=== PATIENT | male | born 1970 | race African-American/Black ===

== ENCOUNTER 2017-11-11 22:55 | Inpatient (IN) ==
[2017-11-11] MEDS ORDERED: SODIUM CHLORIDE 0.9% 1,000 ML IV STA (23:47)
[2017-11-11] MEDS ORDERED: ONDANSETRON 4 MG/2 ML VIAL IV STA (23:47)
[2017-11-11] MEDS ORDERED: MECLIZINE 25 MG TABLET PO STA (23:48)
[2017-11-11] MEDS ORDERED: ONDANSETRON 4 MG/2 ML VIAL ONE (23:59)
[2017-11-11] MEDS ORDERED: MECLIZINE 25 MG TABLET ONE (23:59)
[2017-11-12 00:15] LABS: Basophils # 0.1 10*3/uL (0.0-0.2); Basophils % 0.9 % (0.0-0.8); Eosinophils # 0.1 10*3/uL (0.0-0.87); Eosinophils % 0.7 % (0.00-10.9); Hemoglobin 9.7 GM/DL (14.0-18.0); Immature Granulocytes % 0.4 %; Immature Granulocytes Absolute 0.03 #; Lymphocytes # 1.9 10*3/uL (1.4-4.0); Lymphocytes % 27.6 % (21.2-54.2); Mean Corpuscular HGB Conc 32.3 GM/DL (32-36); Mean Corpuscular Hemoglobin 26 PG (27-34); Mean Corpuscular Volume 80.9 FL (87-102); Mean Platelet Volume 10.4 FL (9.6-12.0); Monocytes % 15.1 % (1.7-12.7); Neutrophils # 3.7 10*3/uL (1.4-7.4); Neutrophils % 55.3 % (38.7-73.9); Platelet Count 168 T/CUMM (130-400); Red Blood Count 3.71 MC/CUMM (3.8-5.5); Red Cell Distribution Width 20.4 % (9.3-17.3); White Blood Count 6.7 T/CUMM (4-12)
[2017-11-12 00:39] LABS: Albumin 3.2 G/DL (3.4-5.0); Bilirubin,Total 1.2 MG/DL (0.2-1.0); Calcium 8.8 MG/DL (8.5-10.1); Osmolality,Calculated 277.7 MOS/KG (273-304); Potassium 3.7 MMOL/L (3.5-5.1); Total Protein 9.3 G/DL (6.4-8.3)
[2017-11-12] MEDS ORDERED: ONDANSETRON 4 MG/2 ML VIAL IV PRN ×2 (00:59→06:40)
[2017-11-12] MEDS ORDERED: ACETAMINOPHEN 325 MG TABLET PO PRN ×2 (00:59→06:40)
[2017-11-12] MEDS ORDERED: DEXTROSE 5% NACL 0.9% 1,000 ML IV SCH (01:00)
[2017-11-12] MEDS ORDERED: DEXTROSE 50% 25 GM/50 ML VIAL IV PRN ×2 (01:00→06:31)
[2017-11-12] MEDS ORDERED: GLUCAGON 1 MG VIAL IM PRN ×2 (01:00→06:31)
[2017-11-12] MEDS ORDERED: DOCUSATE SODIUM 100 MG CAPSULE PO PRN (06:40)
[2017-11-12] MEDS: SODIUM CHLORIDE 0.9% 1,000 ML IV SCH ×2 (07:22→16:31)
[2017-11-12 07:42] LABS: Calcium 8.3 MG/DL (8.5-10.1); Magnesium 1.4 MG/DL (1.8-2.4); Osmolality,Calculated 277.7 MOS/KG (273-304); Potassium 3.4 MMOL/L (3.5-5.1)
[2017-11-12 07:45] LABS: Troponin I Only < 0.015 NG/ML (0.00-0.045)
[2017-11-12] MEDS ORDERED: PANTOPRAZOLE 40 MG TABLET PO SCH (09:00)
[2017-11-12] MEDS ORDERED: DOCUSATE SODIUM 100 MG CAPSULE PO SCH (09:00)
[2017-11-12 10:15] LABS: Basophils # 0.1 10*3/uL (0.0-0.2); Basophils % 1.4 % (0.0-0.8); Eosinophils % 0.7 % (0.00-10.9); Hematocrit 30.3 VOL% (42.0-52.0); Hemoglobin 9.3 GM/DL (14.0-18.0); Immature Granulocytes % 0.2 %; Immature Granulocytes Absolute 0.01 #; Lymphocytes # 1.8 10*3/uL (1.4-4.0); Lymphocytes % 31.3 % (21.2-54.2); Mean Corpuscular HGB Conc 30.7 GM/DL (32-36); Mean Corpuscular Hemoglobin 26 PG (27-34); Mean Corpuscular Volume 83.2 FL (87-102); Mean Platelet Volume 10.5 FL (9.6-12.0); Neutrophils # 2.8 10*3/uL (1.4-7.4); Neutrophils % 49.4 % (38.7-73.9); Platelet Count 142 T/CUMM (130-400); Red Blood Count 3.64 MC/CUMM (3.8-5.5); Red Cell Distribution Width 20.2 % (9.3-17.3); White Blood Count 5.7 T/CUMM (4-12)
[2017-11-12 10:39] LABS: Lymphocytes 33 % (20-55); Segmented Neutrophils 59 % (50-85); Total Cells Counted 100
[2017-11-12 10:40] LABS: Anisocytosis 1+; Hypochromasia 1+; Microcytosis 1+; Platelet Estimate Adequate
[2017-11-12 10:51] LABS: Basophils # 0.1 10*3/uL (0.0-0.2); Basophils % 1.2 % (0.0-0.8); Eosinophils # 0.1 10*3/uL (0.0-0.87); Eosinophils % 1.7 % (0.00-10.9); Hematocrit 29.7 VOL% (42.0-52.0); Hemoglobin 9.3 GM/DL (14.0-18.0); Immature Granulocytes % 0.2 %; Immature Granulocytes Absolute 0.01 #; Lymphocytes # 2.2 10*3/uL (1.4-4.0); Lymphocytes % 35.7 % (21.2-54.2); Mean Corpuscular HGB Conc 31.3 GM/DL (32-36); Mean Corpuscular Hemoglobin 26 PG (27-34); Mean Corpuscular Volume 82.7 FL (87-102); Mean Platelet Volume 10.7 FL (9.6-12.0); Monocytes # 0.9 10*3/uL (0.11-0.8); Monocytes % 15.5 % (1.7-12.7); Neutrophils # 2.8 10*3/uL (1.4-7.4); Neutrophils % 45.7 % (38.7-73.9); Platelet Count 154 T/CUMM (130-400); Red Blood Count 3.59 MC/CUMM (3.8-5.5); Red Cell Distribution Width 20.2 % (9.3-17.3); White Blood Count 6.1 T/CUMM (4-12)
[2017-11-12 11:20] LABS: % Iron Saturation 47.4 % (18-50); Ferritin 22.8 ng/ml (26-388)
[2017-11-12 11:24] LABS: Folate 10.6 NG/ML (5.4-24.0); Vitamin B12 326 PG/ML (211-911)
[2017-11-12] MEDS: INSULIN LISPRO 100 UNIT/ML SUBCUT SCH ×4 (11:32→21:20)
[2017-11-12] MEDS ORDERED: MAGNESIUM SULF RIDER 2 GM in PREMIX 1 EACH IV ONE (11:57)
[2017-11-12 12:24] LABS: Sedimentation Rate-Westergren 101 MM/HR (0-15)
[2017-11-12] MEDS: PANTOPRAZOLE 40 MG TABLET PO SCH (12:48)
[2017-11-12] MEDS: POTASSIUM CHLORIDE 20 MEQ TABLET PO SCH ×2 (12:48→21:20)
[2017-11-12] MEDS ORDERED: MAGNESIUM SULF RIDER 4 GM in PREMIX 1 EACH IV PRN (16:19)
[2017-11-12] MEDS ORDERED: MAGNESIUM SULF RIDER 2 GM in PREMIX 1 EACH IV PRN (16:19)
[2017-11-12 17:29] LABS: Total Protein 8.1 G/DL (6.4-8.3)
[2017-11-12] MEDS: GABAPENTIN 100 MG CAPSULE PO SCH (21:20)
[2017-11-12] MEDS: ATORVASTATIN 10 MG TABLET PO SCH (21:20)
[2017-11-12] MEDS: APIXABAN 5 MG TABLET PO SCH (21:20)
[2017-11-13] MEDS: SODIUM CHLORIDE 0.9% 1,000 ML IV SCH ×3 (00:38→17:05)
[2017-11-13 05:01] LABS: Immunoglobulin A (Chem) 1100 MG/DL (70-400); Immunoglobulin G (Chem) 2370 MG/DL (700-1600); Immunoglobulin M (Chem) 103 MG/DL (40-230); Total Protein (Chem) 8.1 G/DL (6.4-8.3)
[2017-11-13 06:33] LABS: Basophils # 0.1 10*3/uL (0.0-0.2); Eosinophils # 0.2 10*3/uL (0.0-0.87); Eosinophils % 2.5 % (0.00-10.9); Hematocrit 29.8 VOL% (42.0-52.0); Hemoglobin 9.6 GM/DL (14.0-18.0); Immature Granulocytes % 0.3 %; Immature Granulocytes Absolute 0.02 #; Lymphocytes # 2.2 10*3/uL (1.4-4.0); Mean Corpuscular HGB Conc 32.2 GM/DL (32-36); Mean Corpuscular Hemoglobin 26 PG (27-34); Mean Corpuscular Volume 81.2 FL (87-102); Mean Platelet Volume 11.1 FL (9.6-12.0); Monocytes # 0.9 10*3/uL (0.11-0.8); Monocytes % 13.6 % (1.7-12.7); Neutrophils # 3.3 10*3/uL (1.4-7.4); Neutrophils % 49.6 % (38.7-73.9); Platelet Count 143 T/CUMM (130-400); Red Blood Count 3.67 MC/CUMM (3.8-5.5); Red Cell Distribution Width 20.1 % (9.3-17.3); White Blood Count 6.7 T/CUMM (4-12)
[2017-11-13 07:00] LABS: Osmolality,Calculated 272.8 MOS/KG (273-304); Potassium 3.6 MMOL/L (3.5-5.1)
[2017-11-13] MEDS: MAGNESIUM CHLORIDE 64 MG TABLET PO SCH (08:35)
[2017-11-13] MEDS: ASCORBIC ACID 500 MG TABLET PO SCH (08:35)
[2017-11-13] MEDS: DILTIAZEM CD 240 MG CAPSULE PO SCH (08:35)
[2017-11-13] MEDS: MECLIZINE 25 MG TABLET PO SCH (08:35)
[2017-11-13] MEDS: APIXABAN 5 MG TABLET PO SCH ×2 (08:35→21:22)
[2017-11-13] MEDS: MULTIVITAMIN (CENTRUM) TABLET PO SCH (08:35)
[2017-11-13] MEDS: POTASSIUM CHLORIDE 20 MEQ TABLET PO SCH ×2 (08:35→21:21)
[2017-11-13] MEDS: FERROUS SULFATE 325 MG TABLET PO SCH (08:35)
[2017-11-13] MEDS: LORATADINE 10 MG TABLET PO SCH (08:35)
[2017-11-13] MEDS: GABAPENTIN 100 MG CAPSULE PO SCH ×2 (08:36→21:22)
[2017-11-13] MEDS: LISINOPRIL 20 MG TABLET PO SCH (08:36)
[2017-11-13] MEDS: ASPIRIN EC 81 MG TABLET PO SCH (08:36)
[2017-11-13] MEDS: PANTOPRAZOLE 40 MG TABLET PO SCH (08:36)
[2017-11-13] MEDS: INSULIN LISPRO 100 UNIT/ML SUBCUT SCH ×4 (08:47→21:23)
[2017-11-13 08:49] LABS: Albumin (SPE) 3.2 G/DL (3.2-5.3); Alpha 1 (SPE) 0.2 G/DL (0.1-0.4)
[2017-11-13 08:50] LABS: Alpha 1 (SPE) Rel % 2.6 %; Alpha 2 (SPE) 0.8 G/DL (0.4-1.0); Alpha 2 (SPE) Rel % 10.1 %; Beta (SPE) Rel % 12.7 %; Gamma (SPE) 2.9 G/DL (0.7-1.7); Gamma (SPE) Rel % 35.6 %
[2017-11-13 10:10] LABS: Hemoglobin A1 (Alkaline) 97.7 % (96.5-98.5); Hemoglobin A2 (Alkaline) 2.3 % (1.5-3.5)
[2017-11-13 18:34] LABS: Collection Time,Urine 24 HOURS; Total Protein 24 Hr Ur Result 252 MG/24HR (0-149.1); Total Volume,Urine 4200 ML (400-2000)
[2017-11-13] MEDS: ATORVASTATIN 10 MG TABLET PO SCH (21:22)
[2017-11-14] MEDS: SODIUM CHLORIDE 0.9% 1,000 ML IV SCH ×2 (00:55→09:01)
[2017-11-14] MEDS: ASPIRIN EC 81 MG TABLET PO SCH (08:54)
[2017-11-14] MEDS: GABAPENTIN 100 MG CAPSULE PO SCH (08:54)
[2017-11-14] MEDS: ASCORBIC ACID 500 MG TABLET PO SCH (08:54)
[2017-11-14] MEDS: DILTIAZEM CD 240 MG CAPSULE PO SCH (08:54)
[2017-11-14] MEDS: MECLIZINE 25 MG TABLET PO SCH (08:54)
[2017-11-14] MEDS: POTASSIUM CHLORIDE 20 MEQ TABLET PO SCH (08:54)
[2017-11-14] MEDS: MULTIVITAMIN (CENTRUM) TABLET PO SCH (08:54)
[2017-11-14] MEDS: FERROUS SULFATE 325 MG TABLET PO SCH (08:55)
[2017-11-14] MEDS: APIXABAN 5 MG TABLET PO SCH (08:55)
[2017-11-14] MEDS: PANTOPRAZOLE 40 MG TABLET PO SCH (08:55)
[2017-11-14] MEDS: LISINOPRIL 20 MG TABLET PO SCH (08:55)
[2017-11-14] MEDS: MAGNESIUM CHLORIDE 64 MG TABLET PO SCH (08:55)
[2017-11-14] MEDS: LORATADINE 10 MG TABLET PO SCH (08:55)
[2017-11-14] MEDS: INSULIN LISPRO 100 UNIT/ML SUBCUT SCH ×3 (09:02→16:35)
[2017-11-14 12:24] VITALS: BP 133/67
[2017-11-16 14:53] LABS: Immuno Free Light Chain Kappa 9.36 MG/DL (0.33-1.94)
[2017-11-16 14:54] LABS: Immuno Free Light Chain Lambda 6.51 MG/DL (0.57-2.63); Immuno Free Light Chain Ratio 1.44 MG/DL (0.26-1.65)
== END 2017-11-14 16:32 | disposition home or self-care (01) | DRG 149 ==
LOC: EDBD → EDUNIT# → N.ED 22:55 → N.EDINP 11-12 00:59 → N.4E 11-12 01:50
PROVIDERS: ADMIT Family Medicine; ATTEND Family Medicine

== ENCOUNTER 2018-09-06 07:12 | Observation (INO) ==
[2018-09-06] MEDS ORDERED: LACTATED RINGERS 1,000 ML IV SCH (08:00)
[2018-09-06] MEDS ORDERED: LIDOCAINE 100 MG/5 ML SYRINGE ONE (09:00)
[2018-09-06] MEDS ORDERED: PROPOFOL 200 MG/20 ML VIAL IV ONE (09:00)
[2018-09-06] MEDS ORDERED: ONDANSETRON 4 MG/2 ML VIAL IV PRN (10:30)
[2018-09-06 12:29] LABS: Hemoglobin 7.3 GM/DL (14.0-18.0)
[2018-09-06] MEDS ORDERED: SODIUM CHLORIDE 0.9% 1,000 ML IV PRN (15:11)
[2018-09-06 15:43] LABS: Hematocrit 23.9 VOL% (42.0-52.0); Hemoglobin 7.2 GM/DL (14.0-18.0)
[2018-09-06] MEDS ORDERED: CARVEDILOL 25 MG TABLET PO SCH (21:00)
[2018-09-06] MEDS ORDERED: ATORVASTATIN 10 MG TABLET PO SCH (21:00)
[2018-09-06] MEDS: INSULIN LISPRO 100 UNIT/ML SUBCUT SCH (21:28)
[2018-09-06] MEDS: PANTOPRAZOLE 40 MG TABLET PO SCH (21:45)
[2018-09-06] MEDS: CARVEDILOL 25 MG TABLET PO SCH (21:45)
[2018-09-06] MEDS: SODIUM CHLORIDE 0.9% 1,000 ML IV SCH (21:49)
[2018-09-06 22:56] LABS: Hematocrit 28.1 VOL% (42.0-52.0)
[2018-09-07 05:51] LABS: Basophils # 0.1 10*3/uL (0.0-0.2); Eosinophils # 0.1 10*3/uL (0.0-0.87); Eosinophils % 1.3 % (0.00-10.9); Hematocrit 26.7 VOL% (42.0-52.0); Hemoglobin 8.3 GM/DL (14.0-18.0); Immature Granulocytes % 0.4 %; Immature Granulocytes Absolute 0.03 #; Lymphocytes # 1.8 10*3/uL (1.4-4.0); Lymphocytes % 23.9 % (21.2-54.2); Mean Corpuscular HGB Conc 31.1 GM/DL (32-36); Mean Corpuscular Hemoglobin 28 PG (27-34); Mean Corpuscular Volume 88.4 FL (87-102); Mean Platelet Volume 11.6 FL (9.6-12.0); Monocytes # 1.4 10*3/uL (0.11-0.8); Monocytes % 18.8 % (1.7-12.7); Neutrophils # 4.2 10*3/uL (1.4-7.4); Neutrophils % 54.6 % (38.7-73.9); Platelet Count 157 T/CUMM (130-400); Red Blood Count 3.02 MC/CUMM (3.8-5.5); Red Cell Distribution Width 20.1 % (9.3-17.3); White Blood Count 7.6 T/CUMM (4-12)
[2018-09-07] MEDS: SODIUM CHLORIDE 0.9% 1,000 ML IV SCH (05:51)
[2018-09-07] MEDS ORDERED: EPINEPHrine 1 MG/ML VIAL ONE (06:20)
[2018-09-07 06:26] LABS: Hypochromasia 1+; Lymphocytes 26 % (20-55); Microcytosis Slight; Platelet Estimate Adequate; Segmented Neutrophils 55 % (50-85); Total Cells Counted 100
[2018-09-07] MEDS: PANTOPRAZOLE 40 MG TABLET PO SCH (08:40)
[2018-09-07] MEDS: CARVEDILOL 25 MG TABLET PO SCH (08:40)
[2018-09-07] MEDS ORDERED: LISINOPRIL 20 MG TABLET PO SCH (09:00)
[2018-09-07] MEDS ORDERED: MAGNESIUM CHLORIDE 64 MG TABLET PO SCH (09:00)
[2018-09-07] MEDS ORDERED: DILTIAZEM CD 240 MG CAPSULE PO SCH (09:00)
[2018-09-07] MEDS ORDERED: CHOLECALCIFEROL 400 UNIT TABLET PO SCH (09:00)
[2018-09-07] MEDS ORDERED: POTASSIUM CHLORIDE 20 MEQ TABLET PO SCH (09:00)
[2018-09-07] MEDS: INSULIN LISPRO 100 UNIT/ML SUBCUT SCH ×2 (11:06→13:03)
[2018-09-07 11:26] VITALS: BP 112/66
== END 2018-09-07 14:30 | disposition home or self-care (01) ==
LOC: N.GILAB 07:12 → N.5E 07:12
PROVIDERS: ADMIT Internal Medicine Gastroenterology; ATTEND Internal Medicine Gastroenterology

== ENCOUNTER 2020-04-18 15:12 | Inpatient (IN) ==
[2020-04-18 16:42] LABS: Cancer Antigen 19-9 2.3 U/ML (0-37); Carcinoembryonic Antigen 6.6 NG/ML (0.0-5.0)
[2020-04-18] MEDS ORDERED: ACETAMINOPHEN 325 MG TABLET PO PRN (16:59)
[2020-04-18] MEDS ORDERED: DOCUSATE SODIUM 100 MG CAPSULE PO PRN (16:59)
[2020-04-18] MEDS ORDERED: SODIUM CHLORIDE 0.9% 1,000 ML IV PRN (17:15)
[2020-04-18] MEDS ORDERED: MECLIZINE 25 MG TABLET PO PRN (17:30)
[2020-04-18] MEDS ORDERED: GLUCAGON 1 MG VIAL IM PRN (20:48)
[2020-04-18] MEDS ORDERED: DEXTROSE 50% 25 GM/50 ML VIAL IV PRN (20:48)
[2020-04-18] MEDS: carvediloL 25 MG TABLET PO SCH (22:37)
[2020-04-18] MEDS: SODIUM CHLORIDE 0.9% 1,000 ML IV SCH (22:39)
[2020-04-18] MEDS: INSULIN REGULAR 100 UNIT/ML SUBCUT SCH (22:39)
[2020-04-19 06:40] LABS: Basophils # 0.1 10*3/uL (0.0-0.2); Basophils % 1.6 % (0.0-0.8); Eosinophils # 0.4 10*3/uL (0.0-0.87); Eosinophils % 7.3 % (0.00-10.9); Hematocrit 21.9 VOL% (42.0-52.0); Hemoglobin 7.5 GM/DL (14.0-18.0); Immature Granulocytes % 0.4 %; Immature Granulocytes Absolute 0.02 #; Lymphocytes # 1.5 10*3/uL (1.4-4.0); Lymphocytes % 27.4 % (21.2-54.2); Mean Corpuscular HGB Conc 34.2 GM/DL (32-36); Mean Corpuscular Volume 98.2 FL (87-102); Mean Platelet Volume 10.9 FL (9.6-12.0); Monocytes % 12.9 % (1.7-12.7); Neutrophils % 50.4 % (38.7-73.9); Platelet Count 100 T/CUMM (130-400); Red Blood Count 2.23 MC/CUMM (3.8-5.5); Red Cell Distribution Width 18.9 % (9.3-17.3); White Blood Count 5.6 T/CUMM (4-12)
[2020-04-19 06:55] LABS: Albumin 1.3 G/DL (3.4-5.0); Bilirubin,Total 6.6 MG/DL (0.2-1.0); Calcium 8.1 MG/DL (8.5-10.1); Total Protein 6.5 G/DL (6.4-8.3)
[2020-04-19] MEDS ORDERED: CHOLECALCIFEROL 1,000 UNIT TABLET PO SCH (09:00)
[2020-04-19] MEDS ORDERED: lisinopriL 20 MG TABLET PO SCH (09:00)
[2020-04-19] MEDS: INSULIN REGULAR 100 UNIT/ML SUBCUT SCH ×4 (10:57→21:37)
[2020-04-19] MEDS: FERROUS SULFATE 325 MG TABLET PO SCH (10:59)
[2020-04-19] MEDS: PANTOPRAZOLE 40 MG TABLET PO SCH (11:00)
[2020-04-19] MEDS: MULTIVITAMIN (CENTRUM) TABLET PO SCH (11:00)
[2020-04-19] MEDS: MAGNESIUM OXIDE 400 MG TABLET PO SCH (11:00)
[2020-04-19] MEDS: DILTIAZEM CD 240 MG CAPSULE PO SCH (11:00)
[2020-04-19] MEDS: carvediloL 25 MG TABLET PO SCH ×2 (11:04→21:36)
[2020-04-19 15:00] LABS: Apearance,Urine CLEAR (Clear); Bilirubin,Urine Small mg/dL (Negative); Blood, Urine Negative (Negative); Glucose,Urine (UA) Negative (Negative); Hyaline Casts,Urine 9 /LPF (0-3); Ketones,Urine Negative (Negative); Mucus,Urine Occasional /LPF (Occasional); Nitrite,Urine Negative (Negative); Protein,Urine 30 MG/DL; Squamous Epithelial Cell,Urine Occasional /HPF (0-10); Urine Color Amber (Yellow); Urine Specific Gravity 1.018 (1.001-1.035); WBC,Urine 10 /HPF (0-6)
[2020-04-19] MEDS: POTASSIUM CHLORIDE 20 MEQ TABLET PO SCH (15:27)
[2020-04-20] MEDS: SODIUM CHLORIDE 0.9% 1,000 ML IV SCH ×2 (01:26→14:13)
[2020-04-20 05:35] LABS: Basophils # 0.1 10*3/uL (0.0-0.2); Basophils % 1.5 % (0.0-0.8); Eosinophils # 0.3 10*3/uL (0.0-0.87); Eosinophils % 8.1 % (0.00-10.9); Hematocrit 22.3 VOL% (42.0-52.0); Hemoglobin 7.6 GM/DL (14.0-18.0); Immature Granulocytes % 0.2 %; Immature Granulocytes Absolute 0.01 #; Lymphocytes # 1.3 10*3/uL (1.4-4.0); Lymphocytes % 32.6 % (21.2-54.2); Mean Corpuscular HGB Conc 34.1 GM/DL (32-36); Mean Corpuscular Volume 97.8 FL (87-102); Monocytes % 13.8 % (1.7-12.7); Neutrophils % 43.8 % (38.7-73.9); Red Blood Count 2.28 MC/CUMM (3.8-5.5); Red Cell Distribution Width 19.3 % (9.3-17.3); White Blood Count 4.1 T/CUMM (4-12)
[2020-04-20 05:51] LABS: Albumin 1.2 G/DL (3.4-5.0); Bilirubin,Total 5.6 MG/DL (0.2-1.0); Calcium 7.6 MG/DL (8.5-10.1); Osmolality,Calculated 275.8 MOS/KG (273-304); Total Protein 5.6 G/DL (6.4-8.3)
[2020-04-20 05:59] LABS: Platelet Count 89 T/CUMM (130-400)
[2020-04-20 07:28] LABS: Acanthocytes Few; Platelet Estimate Adequate; Poikilocytosis 2+; Polychromasia Slight; Schistocytes Slight
[2020-04-20] MEDS: FERROUS SULFATE 325 MG TABLET PO SCH (09:06)
[2020-04-20] MEDS: MULTIVITAMIN (CENTRUM) TABLET PO SCH (09:06)
[2020-04-20] MEDS: POTASSIUM CHLORIDE 20 MEQ TABLET PO SCH (09:06)
[2020-04-20] MEDS: ONDANSETRON 4 MG/2 ML VIAL IV PRN (09:08)
[2020-04-20] MEDS: DILTIAZEM CD 240 MG CAPSULE PO SCH (09:08)
[2020-04-20] MEDS: PANTOPRAZOLE 40 MG TABLET PO SCH (09:08)
[2020-04-20] MEDS: carvediloL 25 MG TABLET PO SCH ×2 (09:08→21:37)
[2020-04-20] MEDS: MAGNESIUM OXIDE 400 MG TABLET PO SCH (09:08)
[2020-04-20] MEDS: INSULIN REGULAR 100 UNIT/ML SUBCUT SCH ×3 (09:17→16:44)
[2020-04-20] MEDS ORDERED: PROMETHAZINE 25 MG/1 ML VIAL IM PRN (09:25)
[2020-04-20] MEDS: MOISTURIZING CREAM (EUCERIN) 106 GM JAR TOP PRN (10:51)
[2020-04-20] MEDS ORDERED: SODIUM CHLORIDE 0.9% 1,000 ML IV PRN ×2 (12:29→17:09)
[2020-04-20] MEDS: ENOXAPARIN 40 MG/0.4 ML SYRINGE SUBCUT SCH (13:11)
[2020-04-20] MEDS ORDERED: SODIUM CHLORIDE 0.9% 500 ML IV ONE (17:10)
[2020-04-21] MEDS: INSULIN REGULAR 100 UNIT/ML SUBCUT SCH ×5 (00:20→22:40)
[2020-04-21] MEDS ORDERED: SODIUM CHLORIDE 0.9% 500 ML IV ONE ×2 (05:10→11:24)
[2020-04-21] MEDS: ONDANSETRON 4 MG/2 ML VIAL IV PRN (06:21)
[2020-04-21] MEDS: SODIUM CHLORIDE 0.9% 1,000 ML IV SCH (08:22)
[2020-04-21] MEDS ORDERED: ALBUMIN 5% 25 GM in PREMIX 1 EACH IV ONE (09:00)
[2020-04-21 09:15] LABS: Basophils % 1.1 % (0.0-0.8); Eosinophils # 0.2 10*3/uL (0.0-0.87); Hematocrit 23.5 VOL% (42.0-52.0); Hemoglobin 7.7 GM/DL (14.0-18.0); Immature Granulocytes % 0.3 %; Immature Granulocytes Absolute 0.01 #; Lymphocytes % 26.8 % (21.2-54.2); Mean Corpuscular HGB Conc 32.8 GM/DL (32-36); Mean Corpuscular Volume 97.9 FL (87-102); Mean Platelet Volume 11.1 FL (9.6-12.0); Monocytes % 15.5 % (1.7-12.7); Neutrophils % 51.3 % (38.7-73.9); Red Cell Distribution Width 18.6 % (9.3-17.3); White Blood Count 3.6 T/CUMM (4-12)
[2020-04-21 09:16] LABS: Platelet Count 78 T/CUMM (130-400)
[2020-04-21 09:22] LABS: INR 1.6; PT Patient Result 17.2 SECS (9.8-11.9)
[2020-04-21] MEDS: CALCIUM CARBONATE CHEW 500 MG TABLET PO PRN ×2 (09:24→13:11)
[2020-04-21] MEDS: PANTOPRAZOLE 40 MG TABLET PO SCH (09:25)
[2020-04-21] MEDS: POTASSIUM CHLORIDE 20 MEQ TABLET PO SCH (09:25)
[2020-04-21] MEDS: MULTIVITAMIN (CENTRUM) TABLET PO SCH (09:25)
[2020-04-21] MEDS: MAGNESIUM OXIDE 400 MG TABLET PO SCH (09:25)
[2020-04-21] MEDS: FERROUS SULFATE 325 MG TABLET PO SCH (09:25)
[2020-04-21] MEDS: DILTIAZEM CD 240 MG CAPSULE PO SCH (09:34)
[2020-04-21] MEDS: carvediloL 25 MG TABLET PO SCH ×2 (09:35→22:35)
[2020-04-21 10:01] LABS: Hypochromasia 1+; Ovalocytes Slight; Platelet Estimate Decreased
[2020-04-21 10:57] LABS: Ferritin 706.7 ng/ml (26-388)
[2020-04-21] MEDS: ENOXAPARIN 40 MG/0.4 ML SYRINGE SUBCUT SCH (14:17)
[2020-04-21] MEDS ORDERED: CEFUROXIME 500 MG TABLET PO SCH (21:00)
[2020-04-21] MEDS ORDERED: HYDROXYCHLOROQUINE 200 MG TABLET PO SCH (21:00)
[2020-04-21 21:50] LABS: Hematocrit 28.8 VOL% (42.0-52.0); Hemoglobin 9.6 GM/DL (14.0-18.0)
[2020-04-21] MEDS ORDERED: ALBUMIN 25% 25 GM in PREMIX 1 EACH IV ONE (22:00)
[2020-04-21] MEDS: DEXAMETHASONE 4 MG TABLET PO SCH (22:34)
[2020-04-22] MEDS ORDERED: SODIUM CHLORIDE 0.9% 500 ML IV ONE (04:23)
[2020-04-22] MEDS ORDERED: NOREPINEPHRINE 8 MG in SODIUM CHLORIDE 0.9% 242 ML IV PRN (06:00)
[2020-04-22] MEDS ORDERED: MEROPENEM 500 MG in SODIUM CHLORIDE 0.9% 100 ML IV SCH (06:30)
[2020-04-22 06:56] LABS: Basophils % 0.6 % (0.0-0.8); Eosinophils % 0.6 % (0.00-10.9); Hematocrit 26.9 VOL% (42.0-52.0); Immature Granulocytes % 0.3 %; Immature Granulocytes Absolute 0.01 #; Lymphocytes # 0.8 10*3/uL (1.4-4.0); Lymphocytes % 24.3 % (21.2-54.2); Mean Corpuscular HGB Conc 33.5 GM/DL (32-36); Mean Corpuscular Volume 97.8 FL (87-102); Mean Platelet Volume 11.9 FL (9.6-12.0); Neutrophils % 63.2 % (38.7-73.9); Red Blood Count 2.75 MC/CUMM (3.8-5.5); White Blood Count 3.5 T/CUMM (4-12)
[2020-04-22] MEDS ORDERED: MEROPENEM 1,000 MG in SODIUM CHLORIDE 0.9% 100 ML IV SCH (07:00)
[2020-04-22 07:04] LABS: Platelet Count 67 T/CUMM (130-400)
[2020-04-22] MEDS: PHENYLEPHRINE DRIP 40 MG/250 ML PREMIX IV PRN ×2 (07:05→08:57)
[2020-04-22] MEDS: SODIUM CHLORIDE 0.9% 1,000 ML IV SCH ×2 (07:17→19:14)
[2020-04-22] MEDS ORDERED: MAGNESIUM SULF RIDER 4 GM in PREMIX 1 EACH IV ONE (07:21)
[2020-04-22] MEDS: DOPamine 800 MG/250 ML PREMIX IV PRN ×5 (07:24→22:42)
[2020-04-22] MEDS ORDERED: DIAZEPAM 5 MG TABLET PO ONE (07:43)
[2020-04-22] MEDS: DILTIAZEM CD 240 MG CAPSULE PO SCH (08:00)
[2020-04-22] MEDS: carvediloL 25 MG TABLET PO SCH (08:00)
[2020-04-22] MEDS: MULTIVITAMIN (CENTRUM) TABLET PO SCH (08:01)
[2020-04-22] MEDS: FERROUS SULFATE 325 MG TABLET PO SCH (08:01)
[2020-04-22] MEDS: ZINC SULFATE 220 MG CAPSULE PO SCH (08:01)
[2020-04-22] MEDS: DEXAMETHASONE 4 MG TABLET PO SCH ×2 (08:01→20:27)
[2020-04-22] MEDS: MAGNESIUM OXIDE 400 MG TABLET PO SCH (08:01)
[2020-04-22] MEDS: PANTOPRAZOLE 40 MG TABLET PO SCH (08:01)
[2020-04-22] MEDS: POTASSIUM CHLORIDE 20 MEQ TABLET PO SCH (08:04)
[2020-04-22] MEDS: INSULIN REGULAR 100 UNIT/ML SUBCUT SCH ×4 (08:06→22:15)
[2020-04-22] MEDS ORDERED: MIDAZOLAM 2 MG/2 ML VIAL IV ONE (08:40)
[2020-04-22] MEDS ORDERED: MIDAZOLAM 2 MG/2 ML VIAL ONE (08:42)
[2020-04-22 08:50] LABS: Calcium 8.1 MG/DL (8.5-10.1); Osmolality,Calculated 267.8 MOS/KG (273-304)
[2020-04-22] MEDS ORDERED: CALCIUM GLUCONATE 2,000 MG in SODIUM CHLORIDE 0.9% 100 ML IV ONE (10:00)
[2020-04-22] MEDS: MEROPENEM 500 MG in SODIUM CHLORIDE 0.9% 100 ML IV SCH ×3 (10:13→20:27)
[2020-04-22] MEDS: PHENYLEPHRINE INJ 160 MG in SODIUM CHLORIDE 0.9% 234 ML IV PRN ×2 (10:56→18:23)
[2020-04-22] MEDS: ALBUTEROL INHALER 18 GM INH SCH ×3 (13:12→18:23)
[2020-04-22] MEDS: ENOXAPARIN 40 MG/0.4 ML SYRINGE SUBCUT SCH (15:25)
[2020-04-22 19:56] LABS: Free T4 (Free Thyroxine) 1.32 NG/DL (0.76-1.46); Thyroid Stimulating Hormone 5.52 uIU/ml (0.358-3.74)
[2020-04-22 20:01] LABS: Albumin 2.1 G/DL (3.4-5.0); Bilirubin,Total 7.6 MG/DL (0.2-1.0); Calcium 7.7 MG/DL (8.5-10.1); Osmolality,Calculated 274.5 MOS/KG (273-304); Total Protein 7.9 G/DL (6.4-8.3)
[2020-04-22] MEDS: ASCORBIC ACID 500 MG TABLET PO SCH (20:27)
[2020-04-22] MEDS ORDERED: NOREPINEPHRINE 4 MG/4 ML VIAL IV ONE (20:47)
[2020-04-22] MEDS ORDERED: SODIUM POLYSTYRENE SULFATE 15 GM/60 ML BOTTLE PO STA (21:29)
[2020-04-22 23:41] LABS: Apearance,Urine Slightly Hazy (Clear); Bacteria,Urine Occasional /HPF (Few); Bilirubin,Urine Negative (Negative); Blood, Urine Moderate mg/dL (Negative); Glucose,Urine (UA) Negative (Negative); Granular Casts,Urine 3 /LPF (0-1); Hyaline Casts,Urine 28 /LPF (0-3); Ketones,Urine Negative (Negative); Mucus,Urine Occasional /LPF (Occasional); Nitrite,Urine Negative (Negative); Protein,Urine 100 MG/DL; RBC,Urine 25 /HPF (0-4); Squamous Epithelial Cell,Urine Occasional /HPF (0-10); Urine Color Amber (Yellow); Urine Specific Gravity 1.018 (1.001-1.035); WBC,Urine 11 /HPF (0-6)
[2020-04-23] MEDS ORDERED: SODIUM BICARBONATE 50 MEQ/50 ML VIAL IV ONE (00:45)
[2020-04-23] MEDS ORDERED: SODIUM CHLORIDE 0.9% 1,000 ML IV ONE (00:46)
[2020-04-23] MEDS ORDERED: HEPARIN 5,000 UNIT/1 ML VIAL SUBCUT SCH ×2 (01:00→02:00)
[2020-04-23] MEDS: ALBUTEROL INHALER 18 GM INH SCH ×4 (01:15→19:45)
[2020-04-23] MEDS: ALBUMIN 25% 25 GM in PREMIX 1 EACH IV SCH ×3 (01:20→17:18)
[2020-04-23] MEDS: HYDROCORTISONE 100 MG VIAL IV SCH ×3 (01:21→16:00)
[2020-04-23] MEDS ORDERED: HEPARIN DRIP 25,000 UNITS/500 ML PREMIX IV SCH (01:30)
[2020-04-23] MEDS: DOPamine 800 MG/250 ML PREMIX IV PRN ×5 (01:36→16:07)
[2020-04-23] MEDS: PHENYLEPHRINE INJ 160 MG in SODIUM CHLORIDE 0.9% 234 ML IV PRN (01:56)
[2020-04-23] MEDS: MEROPENEM 500 MG in SODIUM CHLORIDE 0.9% 100 ML IV SCH ×2 (03:18→16:00)
[2020-04-23 04:16] LABS: Basophils % 0.1 % (0.0-0.8); Hematocrit 29.7 VOL% (42.0-52.0); Hemoglobin 9.8 GM/DL (14.0-18.0); Immature Granulocytes % 0.6 %; Immature Granulocytes Absolute 0.05 #; Lymphocytes # 1.5 10*3/uL (1.4-4.0); Lymphocytes % 19.3 % (21.2-54.2); Mean Corpuscular Volume 96.7 FL (87-102); Mean Platelet Volume 11.6 FL (9.6-12.0); Monocytes % 13.1 % (1.7-12.7); NRBC # 0.02 10*3/uL; Neutrophils % 66.9 % (38.7-73.9); Platelet Count 101 T/CUMM (130-400); Red Blood Count 3.07 MC/CUMM (3.8-5.5); Red Cell Distribution Width 17.3 % (9.3-17.3); White Blood Count 7.7 T/CUMM (4-12)
[2020-04-23 04:34] LABS: Albumin 2.6 G/DL (3.4-5.0); Bilirubin,Total 6.6 MG/DL (0.2-1.0); Calcium 7.9 MG/DL (8.5-10.1); Osmolality,Calculated 273.5 MOS/KG (273-304)
[2020-04-23 04:38] LABS: Hypochromasia 1+; Platelet Estimate Decreased
[2020-04-23 05:03] LABS: Ferritin 1076.6 ng/ml (26-388)
[2020-04-23] MEDS: LIOTHYRONINE 25 MCG TABLET PO SCH (06:11)
[2020-04-23] MEDS: MULTIVITAMIN (CENTRUM) TABLET PO SCH (08:23)
[2020-04-23] MEDS: DEXAMETHASONE 4 MG/1 ML VIAL IV SCH (08:23)
[2020-04-23] MEDS: PANTOPRAZOLE 40 MG TABLET PO SCH (08:23)
[2020-04-23] MEDS: MAGNESIUM OXIDE 400 MG TABLET PO SCH (08:23)
[2020-04-23] MEDS: FERROUS SULFATE 325 MG TABLET PO SCH (08:23)
[2020-04-23] MEDS: ZINC SULFATE 220 MG CAPSULE PO SCH (08:24)
[2020-04-23] MEDS: SKIN HEALING OINT (AQUAPHOR) 50 GM TUBE TOP SCH ×2 (08:24→20:08)
[2020-04-23] MEDS: ASCORBIC ACID 500 MG TABLET PO SCH ×2 (08:34→20:09)
[2020-04-23] MEDS: INSULIN REGULAR 100 UNIT/ML SUBCUT SCH ×4 (08:34→20:08)
[2020-04-23] MEDS ORDERED: ONDANSETRON 4 MG/2 ML VIAL ONE (11:33)
[2020-04-23] MEDS: HEPARIN 5,000 UNIT/1 ML VIAL SUBCUT SCH ×2 (11:44→18:29)
[2020-04-23] MEDS ORDERED: ONDANSETRON 4 MG/2 ML VIAL IV PRN (11:52)
[2020-04-23 16:35] LABS: Calcium 7.8 MG/DL (8.5-10.1); Osmolality,Calculated 276.5 MOS/KG (273-304)
[2020-04-23] MEDS: SODIUM CHLORIDE 0.9% 1,000 ML IV SCH ×2 (20:46→20:47)
[2020-04-24] MEDS: DOPamine 800 MG/250 ML PREMIX IV PRN
[2020-04-24] MEDS: HYDROCORTISONE 100 MG VIAL IV SCH ×3 (00:38→17:11)
[2020-04-24] MEDS: ALBUTEROL INHALER 18 GM INH SCH ×4 (00:55→17:11)
[2020-04-24] MEDS: HEPARIN 5,000 UNIT/1 ML VIAL SUBCUT SCH (02:56)
[2020-04-24] MEDS: MEROPENEM 500 MG in SODIUM CHLORIDE 0.9% 100 ML IV SCH ×2 (02:56→16:47)
[2020-04-24 04:31] LABS: ABG HCO3 15.7 MMOL/L (20-26); ABG Oxygen Saturation 98.7 % (95-100); ABG PCO2 21.5 MM HG (35-48); ABG PH 7.386 (7.35-7.45)
[2020-04-24 04:42] LABS: Hematocrit 24.6 VOL% (42.0-52.0); Hemoglobin 8.2 GM/DL (14.0-18.0); Immature Granulocytes % 0.4 %; Immature Granulocytes Absolute 0.02 #; Lymphocytes # 0.8 10*3/uL (1.4-4.0); Lymphocytes % 16.6 % (21.2-54.2); Mean Corpuscular HGB Conc 33.3 GM/DL (32-36); Mean Corpuscular Volume 97.2 FL (87-102); Mean Platelet Volume 11.3 FL (9.6-12.0); Monocytes % 14.9 % (1.7-12.7); Neutrophils % 68.1 % (38.7-73.9); Red Blood Count 2.53 MC/CUMM (3.8-5.5); Red Cell Distribution Width 17.2 % (9.3-17.3); White Blood Count 4.7 T/CUMM (4-12)
[2020-04-24 04:49] LABS: Platelet Count 71 T/CUMM (130-400)
[2020-04-24 05:03] LABS: Burr Cells Slight; Hypochromasia Slight; Ovalocytes Slight; Platelet Estimate Decreased
[2020-04-24 05:15] LABS: Albumin 2.8 G/DL (3.4-5.0); Bilirubin,Total 5.4 MG/DL (0.2-1.0); Osmolality,Calculated 275.4 MOS/KG (273-304); Total Protein 7.1 G/DL (6.4-8.3)
[2020-04-24] MEDS: LIOTHYRONINE 25 MCG TABLET PO SCH (05:35)
[2020-04-24] MEDS: MULTIVITAMIN (CENTRUM) TABLET PO SCH (09:29)
[2020-04-24] MEDS: FERROUS SULFATE 325 MG TABLET PO SCH (09:29)
[2020-04-24] MEDS: INSULIN REGULAR 100 UNIT/ML SUBCUT SCH ×4 (09:29→20:20)
[2020-04-24] MEDS: DEXAMETHASONE 4 MG/1 ML VIAL IV SCH (09:29)
[2020-04-24] MEDS: ASCORBIC ACID 500 MG TABLET PO SCH ×2 (09:29→20:20)
[2020-04-24] MEDS: SKIN HEALING OINT (AQUAPHOR) 50 GM TUBE TOP SCH ×2 (09:29→20:20)
[2020-04-24] MEDS: ZINC SULFATE 220 MG CAPSULE PO SCH (09:29)
[2020-04-24] MEDS: PANTOPRAZOLE 40 MG TABLET PO SCH (09:29)
[2020-04-24] MEDS: MAGNESIUM OXIDE 400 MG TABLET PO SCH (09:29)
[2020-04-24] MEDS ORDERED: SODIUM CHLORIDE 0.9% 1,000 ML IV PRN (09:44)
[2020-04-24] MEDS: LACTULOSE 20 GM/30 ML UDCUP PO SCH ×2 (17:11→20:20)
[2020-04-25] MEDS: HYDROCORTISONE 100 MG VIAL IV SCH ×3 (01:06→17:05)
[2020-04-25] MEDS: ALBUTEROL INHALER 18 GM INH SCH ×4 (01:08→20:28)
[2020-04-25] MEDS: MEROPENEM 500 MG in SODIUM CHLORIDE 0.9% 100 ML IV SCH ×2 (03:56→15:15)
[2020-04-25 05:34] LABS: Hematocrit 27.5 VOL% (42.0-52.0); Hemoglobin 9.2 GM/DL (14.0-18.0); Immature Granulocytes % 1.1 %; Immature Granulocytes Absolute 0.05 #; Lymphocytes # 0.7 10*3/uL (1.4-4.0); Lymphocytes % 15.1 % (21.2-54.2); Mean Corpuscular HGB Conc 33.5 GM/DL (32-36); Mean Corpuscular Volume 94.8 FL (87-102); Mean Platelet Volume 11.4 FL (9.6-12.0); Neutrophils % 72.8 % (38.7-73.9); Red Cell Distribution Width 17.1 % (9.3-17.3); White Blood Count 4.6 T/CUMM (4-12)
[2020-04-25 05:38] LABS: Platelet Count 70 T/CUMM (130-400)
[2020-04-25 05:49] LABS: Albumin 2.7 G/DL (3.4-5.0); Calcium 8.2 MG/DL (8.5-10.1); Osmolality,Calculated 282.1 MOS/KG (273-304); Total Protein 7.3 G/DL (6.4-8.3)
[2020-04-25 05:56] LABS: Hypochromasia Slight; Platelet Estimate Decreased
[2020-04-25] MEDS: LIOTHYRONINE 25 MCG TABLET PO SCH (07:25)
[2020-04-25] MEDS: MULTIVITAMIN (CENTRUM) TABLET PO SCH (09:46)
[2020-04-25] MEDS: LACTULOSE 20 GM/30 ML UDCUP PO SCH ×3 (09:46→20:27)
[2020-04-25] MEDS: INSULIN REGULAR 100 UNIT/ML SUBCUT SCH ×4 (09:46→20:28)
[2020-04-25] MEDS: DEXAMETHASONE 4 MG/1 ML VIAL IV SCH (09:46)
[2020-04-25] MEDS: FERROUS SULFATE 325 MG TABLET PO SCH (09:46)
[2020-04-25] MEDS: SKIN HEALING OINT (AQUAPHOR) 50 GM TUBE TOP SCH ×2 (09:46→20:27)
[2020-04-25] MEDS: ZINC SULFATE 220 MG CAPSULE PO SCH (09:47)
[2020-04-25] MEDS: MAGNESIUM OXIDE 400 MG TABLET PO SCH (09:47)
[2020-04-25] MEDS: PANTOPRAZOLE 40 MG TABLET PO SCH (09:47)
[2020-04-25] MEDS: ASCORBIC ACID 500 MG TABLET PO SCH ×2 (09:47→20:27)
[2020-04-25] MEDS: MOISTURIZING CREAM (EUCERIN) 106 GM JAR TOP PRN (16:28)
[2020-04-26] MEDS: HYDROCORTISONE 100 MG VIAL IV SCH ×3 (00:57→17:01)
[2020-04-26] MEDS: ALBUTEROL INHALER 18 GM INH SCH ×4 (00:58→19:45)
[2020-04-26] MEDS: MEROPENEM 500 MG in SODIUM CHLORIDE 0.9% 100 ML IV SCH ×3 (03:10→21:51)
[2020-04-26] MEDS: LIOTHYRONINE 25 MCG TABLET PO SCH (06:06)
[2020-04-26 06:32] LABS: Hematocrit 27.6 VOL% (42.0-52.0); Hemoglobin 9.5 GM/DL (14.0-18.0); Immature Granulocytes % 0.8 %; Immature Granulocytes Absolute 0.04 #; Lymphocytes # 0.7 10*3/uL (1.4-4.0); Lymphocytes % 15.3 % (21.2-54.2); Mean Corpuscular HGB Conc 34.4 GM/DL (32-36); Mean Corpuscular Volume 92.6 FL (87-102); Mean Platelet Volume 11.5 FL (9.6-12.0); Monocytes % 9.9 % (1.7-12.7); Red Blood Count 2.98 MC/CUMM (3.8-5.5); Red Cell Distribution Width 16.8 % (9.3-17.3); White Blood Count 4.8 T/CUMM (4-12)
[2020-04-26 06:33] LABS: Platelet Count 66 T/CUMM (130-400)
[2020-04-26 06:36] LABS: INR 1.5; PT Patient Result 16.2 SECS (9.8-11.9)
[2020-04-26 07:03] LABS: Platelet Estimate Decreased
[2020-04-26 07:04] LABS: Anisocytosis 3+; Burr Cells Few; Macrocytosis 1+; Poikilocytosis 1+; Target Cells Few
[2020-04-26 07:08] LABS: Albumin 2.5 G/DL (3.4-5.0); Bilirubin,Total 5.8 MG/DL (0.2-1.0); Calcium 8.7 MG/DL (8.5-10.1); Osmolality,Calculated 288.7 MOS/KG (273-304); Total Protein 6.9 G/DL (6.4-8.3)
[2020-04-26] MEDS: INSULIN REGULAR 100 UNIT/ML SUBCUT SCH ×4 (07:22→21:51)
[2020-04-26] MEDS: ZINC SULFATE 220 MG CAPSULE PO SCH (08:28)
[2020-04-26] MEDS: ASCORBIC ACID 500 MG TABLET PO SCH ×2 (08:28→21:51)
[2020-04-26] MEDS: MULTIVITAMIN (CENTRUM) TABLET PO SCH (08:28)
[2020-04-26] MEDS: PANTOPRAZOLE 40 MG TABLET PO SCH (08:28)
[2020-04-26] MEDS: LACTULOSE 20 GM/30 ML UDCUP PO SCH ×3 (08:28→21:51)
[2020-04-26] MEDS: FERROUS SULFATE 325 MG TABLET PO SCH (08:29)
[2020-04-26] MEDS: SKIN HEALING OINT (AQUAPHOR) 50 GM TUBE TOP SCH ×2 (08:29→21:51)
[2020-04-26] MEDS: DEXAMETHASONE 4 MG/1 ML VIAL IV SCH (08:30)
[2020-04-27] MEDS: HYDROCORTISONE 100 MG VIAL IV SCH ×3 (02:10→17:44)
[2020-04-27] MEDS: ALBUTEROL INHALER 18 GM INH SCH ×4 (02:10→18:02)
[2020-04-27] MEDS: LIOTHYRONINE 25 MCG TABLET PO SCH (06:50)
[2020-04-27] MEDS: ASCORBIC ACID 500 MG TABLET PO SCH ×2 (08:39→20:48)
[2020-04-27] MEDS: ZINC SULFATE 220 MG CAPSULE PO SCH (08:39)
[2020-04-27] MEDS: MULTIVITAMIN (CENTRUM) TABLET PO SCH (08:39)
[2020-04-27] MEDS: LACTULOSE 20 GM/30 ML UDCUP PO SCH ×3 (08:39→20:48)
[2020-04-27] MEDS: FERROUS SULFATE 325 MG TABLET PO SCH (08:39)
[2020-04-27] MEDS: INSULIN REGULAR 100 UNIT/ML SUBCUT SCH ×4 (08:39→21:52)
[2020-04-27] MEDS: PANTOPRAZOLE 40 MG TABLET PO SCH (08:39)
[2020-04-27] MEDS: MEROPENEM 500 MG in SODIUM CHLORIDE 0.9% 100 ML IV SCH ×2 (08:40→20:48)
[2020-04-27] MEDS: SKIN HEALING OINT (AQUAPHOR) 50 GM TUBE TOP SCH ×2 (08:40→20:48)
[2020-04-27] MEDS: DEXAMETHASONE 4 MG/1 ML VIAL IV SCH (08:40)
[2020-04-27 10:57] LABS: Albumin 2.3 G/DL (3.4-5.0); Calcium 8.8 MG/DL (8.5-10.1); Osmolality,Calculated 292.7 MOS/KG (273-304); Total Protein 6.7 G/DL (6.4-8.3)
[2020-04-27] MEDS ORDERED: DEXTROSE 50% 25 GM/50 ML VIAL IV PRN (11:57)
[2020-04-28] MEDS: ALBUTEROL INHALER 18 GM INH SCH ×5 (01:04→18:06)
[2020-04-28] MEDS: HYDROCORTISONE 100 MG VIAL IV SCH ×3 (01:04→16:37)
[2020-04-28] MEDS: LIOTHYRONINE 25 MCG TABLET PO SCH (05:50)
[2020-04-28 06:03] LABS: Hemoglobin 9.6 GM/DL (14.0-18.0); Immature Granulocytes % 1.5 %; Immature Granulocytes Absolute 0.11 #; Lymphocytes # 0.9 10*3/uL (1.4-4.0); Lymphocytes % 12.3 % (21.2-54.2); Mean Corpuscular HGB Conc 34.3 GM/DL (32-36); Mean Platelet Volume 10.9 FL (9.6-12.0); Monocytes % 9.3 % (1.7-12.7); NRBC # 0.02 10*3/uL; Neutrophils % 76.9 % (38.7-73.9); Platelet Count 75 T/CUMM (130-400); Red Blood Count 2.98 MC/CUMM (3.8-5.5); Red Cell Distribution Width 16.5 % (9.3-17.3); White Blood Count 7.1 T/CUMM (4-12)
[2020-04-28 06:23] LABS: Albumin 2.1 G/DL (3.4-5.0); Bilirubin,Total 5.4 MG/DL (0.2-1.0); Calcium 8.9 MG/DL (8.5-10.1); Osmolality,Calculated 291.4 MOS/KG (273-304); Total Protein 6.1 G/DL (6.4-8.3)
[2020-04-28 06:49] LABS: Anisocytosis 3+; Macrocytosis 1+; Platelet Estimate Decreased; Target Cells Few
[2020-04-28 06:50] LABS: Burr Cells Few; Poikilocytosis Slight
[2020-04-28] MEDS: INSULIN REGULAR 100 UNIT/ML SUBCUT SCH ×4 (09:05→20:33)
[2020-04-28] MEDS: MULTIVITAMIN (CENTRUM) TABLET PO SCH (09:06)
[2020-04-28] MEDS: ASCORBIC ACID 500 MG TABLET PO SCH ×2 (09:06→20:49)
[2020-04-28] MEDS: PANTOPRAZOLE 40 MG TABLET PO SCH (09:06)
[2020-04-28] MEDS: FERROUS SULFATE 325 MG TABLET PO SCH (09:06)
[2020-04-28] MEDS: LACTULOSE 20 GM/30 ML UDCUP PO SCH ×3 (09:06→20:49)
[2020-04-28] MEDS: ZINC GLUCONATE 50 MG TABLET PO SCH (09:07)
[2020-04-28] MEDS: DEXAMETHASONE 4 MG/1 ML VIAL IV SCH (09:08)
[2020-04-28] MEDS: MEROPENEM 500 MG in SODIUM CHLORIDE 0.9% 100 ML IV SCH ×2 (09:08→20:49)
[2020-04-28] MEDS: SKIN HEALING OINT (AQUAPHOR) 50 GM TUBE TOP SCH ×2 (09:09→20:48)
[2020-04-28] MEDS: POTASSIUM CHLORIDE 20 MEQ TABLET PO PRN ×4 (11:53→18:06)
[2020-04-29] MEDS: ALBUTEROL INHALER 18 GM INH SCH ×5 (02:19→18:27)
[2020-04-29] MEDS: HYDROCORTISONE 100 MG VIAL IV SCH ×3 (02:19→16:39)
[2020-04-29 05:47] LABS: Basophils % 0.2 % (0.0-0.8); Hematocrit 32.3 VOL% (42.0-52.0); Hemoglobin 10.6 GM/DL (14.0-18.0); Immature Granulocytes % 2.6 %; Immature Granulocytes Absolute 0.29 #; Lymphocytes # 1.3 10*3/uL (1.4-4.0); Lymphocytes % 11.5 % (21.2-54.2); Mean Corpuscular HGB Conc 32.8 GM/DL (32-36); Mean Corpuscular Volume 96.1 FL (87-102); Mean Platelet Volume 12.2 FL (9.6-12.0); NRBC # 0.02 10*3/uL; Neutrophils % 75.7 % (38.7-73.9); Platelet Count 96 T/CUMM (130-400); Red Blood Count 3.36 MC/CUMM (3.8-5.5); Red Cell Distribution Width 16.7 % (9.3-17.3); White Blood Count 11.1 T/CUMM (4-12)
[2020-04-29 06:03] LABS: Albumin 2.2 G/DL (3.4-5.0); Bilirubin,Total 6.9 MG/DL (0.2-1.0); Calcium 9.1 MG/DL (8.5-10.1); Osmolality,Calculated 288.7 MOS/KG (273-304); Total Protein 6.7 G/DL (6.4-8.3)
[2020-04-29] MEDS: LIOTHYRONINE 25 MCG TABLET PO SCH (06:27)
[2020-04-29 08:36] LABS: Band Neutrophils 3 % (0-10); Lymphocytes 13 % (20-55); Metamyelocytes 2 %; Platelet Estimate Decreased; Segmented Neutrophils 75 % (50-85); Total Cells Counted 100
[2020-04-29 08:37] LABS: Anisocytosis 2+; Burr Cells Few; Macrocytosis 2+; Poikilocytosis 1+; Smudge Cells Few; Target Cells Few
[2020-04-29] MEDS: MEROPENEM 500 MG in SODIUM CHLORIDE 0.9% 100 ML IV SCH ×2 (09:38→21:35)
[2020-04-29] MEDS: PANTOPRAZOLE 40 MG TABLET PO SCH (09:39)
[2020-04-29] MEDS: FERROUS SULFATE 325 MG TABLET PO SCH (09:39)
[2020-04-29] MEDS: INSULIN REGULAR 100 UNIT/ML SUBCUT SCH ×4 (09:39→21:34)
[2020-04-29] MEDS: LACTULOSE 20 GM/30 ML UDCUP PO SCH ×3 (09:39→21:35)
[2020-04-29] MEDS: MULTIVITAMIN (CENTRUM) TABLET PO SCH (09:39)
[2020-04-29] MEDS: POTASSIUM CHLORIDE 20 MEQ TABLET PO PRN (09:39)
[2020-04-29] MEDS: ZINC GLUCONATE 50 MG TABLET PO SCH (09:39)
[2020-04-29] MEDS: ASCORBIC ACID 500 MG TABLET PO SCH ×2 (09:39→21:35)
[2020-04-29] MEDS: SKIN HEALING OINT (AQUAPHOR) 50 GM TUBE TOP SCH ×2 (09:40→21:48)
[2020-04-29] MEDS: DEXAMETHASONE 4 MG/1 ML VIAL IV SCH (09:40)
[2020-04-30] MEDS: ALBUTEROL INHALER 18 GM INH SCH ×2 (01:34→07:12)
[2020-04-30] MEDS: HYDROCORTISONE 100 MG VIAL IV SCH (01:34)
[2020-04-30 05:39] LABS: Basophils % 0.1 % (0.0-0.8); Eosinophils % 0.1 % (0.00-10.9); Hematocrit 31.6 VOL% (42.0-52.0); Hemoglobin 10.6 GM/DL (14.0-18.0); Immature Granulocytes % 2.7 %; Immature Granulocytes Absolute 0.33 #; Lymphocytes # 1.4 10*3/uL (1.4-4.0); Mean Corpuscular HGB Conc 33.5 GM/DL (32-36); Mean Corpuscular Volume 94.3 FL (87-102); Mean Platelet Volume 11.1 FL (9.6-12.0); Monocytes % 9.8 % (1.7-12.7); NRBC # 0.02 10*3/uL; Neutrophils % 76.3 % (38.7-73.9); Platelet Count 79 T/CUMM (130-400); Red Blood Count 3.35 MC/CUMM (3.8-5.5); Red Cell Distribution Width 16.5 % (9.3-17.3); White Blood Count 12.2 T/CUMM (4-12)
[2020-04-30 05:57] LABS: Albumin 2.1 G/DL (3.4-5.0); Bilirubin,Total 5.5 MG/DL (0.2-1.0); Calcium 8.8 MG/DL (8.5-10.1); Osmolality,Calculated 287.7 MOS/KG (273-304); Total Protein 6.4 G/DL (6.4-8.3)
[2020-04-30] MEDS: LIOTHYRONINE 25 MCG TABLET PO SCH (06:12)
[2020-04-30 06:22] LABS: Burr Cells Slight; Hypochromasia 1+; Ovalocytes Slight; Platelet Estimate Decreased; Target Cells Few
[2020-04-30] MEDS ORDERED: HYDROCORTISONE 100 MG VIAL IV SCH (06:30)
[2020-04-30 08:10] VITALS: BP 136/76
[2020-04-30] MEDS: ASCORBIC ACID 500 MG TABLET PO SCH (09:32)
[2020-04-30] MEDS: LACTULOSE 20 GM/30 ML UDCUP PO SCH (09:32)
[2020-04-30] MEDS: SKIN HEALING OINT (AQUAPHOR) 50 GM TUBE TOP SCH (09:33)
[2020-04-30] MEDS: FERROUS SULFATE 325 MG TABLET PO SCH (09:33)
[2020-04-30] MEDS: INSULIN REGULAR 100 UNIT/ML SUBCUT SCH ×2 (09:33→12:01)
[2020-04-30] MEDS: MULTIVITAMIN (CENTRUM) TABLET PO SCH (09:33)
[2020-04-30] MEDS: ZINC GLUCONATE 50 MG TABLET PO SCH (09:33)
[2020-04-30] MEDS: PANTOPRAZOLE 40 MG TABLET PO SCH (09:34)
== END 2020-04-30 12:48 | disposition home health service (06) | DRG 432 ==
LOC: N.3E → SUATTDRO 04-20 12:28 → N.2E 04-21 11:21 → N.CC 04-22 06:31 → N.2E 04-25 15:56
PROVIDERS: ADMIT Family Medicine; ATTEND Family Medicine

== ENCOUNTER 2020-05-20 10:30 | Inpatient (IN) ==
[2020-05-20] MEDS ORDERED: THIAMINE 200 MG/2 ML VIAL IV STA (11:03)
[2020-05-20] MEDS ORDERED: ONDANSETRON 4 MG/2 ML VIAL ONE (11:03)
[2020-05-20] MEDS ORDERED: SODIUM CHLORIDE 0.9% 500 ML IV STA ×2 (11:06→11:46)
[2020-05-20 11:11] LABS: Basophils % 0.6 % (0.0-0.8); Eosinophils % 1.2 % (0.00-10.9); Hematocrit 21.4 VOL% (42.0-52.0); Hemoglobin 7.1 GM/DL (14.0-18.0); Immature Granulocytes % 0.6 %; Immature Granulocytes Absolute 0.02 #; Lymphocytes # 0.8 10*3/uL (1.4-4.0); Lymphocytes % 23.9 % (21.2-54.2); Mean Corpuscular HGB Conc 33.2 GM/DL (32-36); Mean Corpuscular Volume 92.2 FL (87-102); Mean Platelet Volume 11.9 FL (9.6-12.0); Monocytes % 6.4 % (1.7-12.7); NRBC # 0.02 10*3/uL; Neutrophils % 67.3 % (38.7-73.9); Platelet Count 107 T/CUMM (130-400); Red Blood Count 2.32 MC/CUMM (3.8-5.5); Red Cell Distribution Width 17.2 % (9.3-17.3); White Blood Count 3.3 T/CUMM (4-12)
[2020-05-20 11:19] LABS: INR 2.1; PT Patient Result 22.1 SECS (9.8-11.9)
[2020-05-20 11:28] LABS: Alanine Aminotransferase 38 U/L (16-61); Albumin 1.6 G/DL (3.4-5.0); Alkaline Phosphatase 137 U/L (45-117); Aspartate Amino Transferase 92 U/L (0-37); Blood Urea Nitrogen 24 MG/DL (7-18); Estimated Glom Filtration Rate 47 ML/MIN; Glucose 97 MG/DL (74-106); Osmolality,Calculated 273.1 MOS/KG (273-304); Total Protein 4.8 G/DL (6.4-8.3)
[2020-05-20] MEDS ORDERED: NOREPINEPHRINE 4 MG/4 ML VIAL IV ONE (11:29)
[2020-05-20] MEDS: NOREPINEPHRINE 8 MG in SODIUM CHLORIDE 0.9% 242 ML IV SCH ×2 (11:30→20:18)
[2020-05-20 11:40] LABS: Anisocytosis 2+; Atypical Lymphocytes Few; Band Neutrophils 46 % (0-10); Eosinophils 3 % (0-10); Lymphocytes 14 % (20-55); Macrocytosis 1+; Metamyelocytes 12 %; Myelocytes 3 %; Nucleated Red Blood Cells 2 (0-5); Platelet Estimate Adequate; Segmented Neutrophils 18 % (50-85); Total Cells Counted 100
[2020-05-20 11:41] LABS: Basophilic Stippling Slight; Burr Cells Few; Poikilocytosis 1+; Polychromasia Slight; Target Cells Few
[2020-05-20 11:42] LABS: Ovalocytes Few
[2020-05-20 11:43] LABS: ABG Base Excess -20.8 MMOL/L (-2.5-2.5); ABG HCO3 8.7 MMOL/L (20-26); ABG Oxygen Saturation 98.3 % (95-100); ABG PH 7.215 (7.35-7.45); ABG TCO2 5.9 MMOL/L (23-27)
[2020-05-20 11:47] LABS: ABG PCO2 14.9 MM HG (35-48)
[2020-05-20] MEDS ORDERED: SODIUM CHLORIDE 0.9% 1,000 ML IV PRN (12:00)
[2020-05-20] MEDS ORDERED: CEFEPIME 1,000 MG in SODIUM CHLORIDE 0.9% 100 ML IV STA (12:01)
[2020-05-20 12:18] LABS: Apearance,Urine CLEAR (Clear); Bilirubin,Urine Negative (Negative); Blood, Urine Negative (Negative); Glucose,Urine (UA) Negative (Negative); Hyaline Casts,Urine 6 /LPF (0-3); Ketones,Urine 5 mg/dL (Negative); Nitrite,Urine Negative (Negative); Protein,Urine Negative; RBC,Urine 1 /HPF (0-4); Urine Color Amber (Yellow); Urine Specific Gravity 1.017 (1.001-1.035); WBC,Urine 4 /HPF (0-6)
[2020-05-20] MEDS ORDERED: DOPamine 800 MG/250 ML PREMIX IV ONE (12:32)
[2020-05-20] MEDS ORDERED: ONDANSETRON 4 MG/2 ML VIAL IV PRN (12:48)
[2020-05-20] MEDS ORDERED: MORPHINE 4 MG/1 ML VIAL IV PRN (12:48)
[2020-05-20] MEDS ORDERED: ALBUTEROL 2.5 MG/3 ML NEB RESP TX PRN (12:48)
[2020-05-20] MEDS: DOPamine 800 MG/250 ML PREMIX IV PRN (12:50)
[2020-05-20] MEDS ORDERED: ETOMIDATE 20 MG/10 ML VIAL IV ONE ×2 (12:53→13:17)
[2020-05-20] MEDS ORDERED: SUCCINYLCHOLINE 200 MG/10 ML VIAL ONE (12:54)
[2020-05-20] MEDS ORDERED: PANTOPRAZOLE INJ 80 MG in SODIUM CHLORIDE 0.9% 100 ML IV ONE (13:00)
[2020-05-20] MEDS ORDERED: SUCCINYLCHOLINE 200 MG/10 ML VIAL IV ONE (13:18)
[2020-05-20] MEDS: MIDAZOLAM 100 MG in SODIUM CHLORIDE 0.9% 80 ML IV PRN (13:27)
[2020-05-20] MEDS: OCTREOTIDE 500 MCG in SODIUM CHLORIDE 0.9% 100 ML IV SCH (13:42)
[2020-05-20] MEDS ORDERED: PANTOPRAZOLE INJ 200 MG in SODIUM CHLORIDE 0.9% 250 ML IV SCH (14:00)
[2020-05-20 14:45] LABS: ABG Base Excess -20.7 MMOL/L (-2.5-2.5); ABG HCO3 9.1 MMOL/L (20-26); ABG Oxygen Saturation 99.5 % (95-100); ABG PCO2 25.5 MM HG (35-48); ABG TCO2 7.6 MMOL/L (23-27)
[2020-05-20 14:46] LABS: ABG PH 7.095 (7.35-7.45)
[2020-05-20] MEDS ORDERED: SODIUM BICARBONATE 50 MEQ/50 ML VIAL IV ONE (14:50)
[2020-05-20] MEDS: fentaNYL INJ 1,250 MCG in SODIUM CHLORIDE 0.9% 225 ML IV PRN (14:51)
[2020-05-20] MEDS ORDERED: SODIUM BICARB INJ 100 MEQ in STERILE WATER INJ 1,000 ML IV SCH (15:00)
[2020-05-20 16:29] VITALS: BP 119/54
[2020-05-20 20:12] LABS: Basophils % 0.8 % (0.0-0.8); Eosinophils # 0.1 10*3/uL (0.0-0.87); Eosinophils % 3.3 % (0.00-10.9); Hematocrit 29.3 VOL% (42.0-52.0); Immature Granulocytes % 0.8 %; Immature Granulocytes Absolute 0.02 #; Lymphocytes # 0.8 10*3/uL (1.4-4.0); Lymphocytes % 31.1 % (21.2-54.2); Mean Corpuscular HGB Conc 32.8 GM/DL (32-36); Mean Corpuscular Volume 92.4 FL (87-102); Mean Platelet Volume 12.1 FL (9.6-12.0); Monocytes % 2.9 % (1.7-12.7); NRBC # 0.07 10*3/uL; Neutrophils % 61.1 % (38.7-73.9); Platelet Count 106 T/CUMM (130-400); Red Blood Count 3.17 MC/CUMM (3.8-5.5); Red Cell Distribution Width 16.5 % (9.3-17.3); White Blood Count 2.4 T/CUMM (4-12)
[2020-05-20 20:14] LABS: Hemoglobin 9.6 GM/DL (14.0-18.0)
[2020-05-20 20:42] LABS: Band Neutrophils 7 % (0-10); Eosinophils 4 % (0-10); Lymphocytes 34 % (20-55); Nucleated Red Blood Cells 1 (0-5); Segmented Neutrophils 53 % (50-85); Total Cells Counted 100
[2020-05-20 20:43] LABS: Anisocytosis 1+; Burr Cells 1+; Hypochromasia 1+; Polychromasia 1+
[2020-05-20 20:44] LABS: Platelet Estimate Adequate; Schistocytes Few; Target Cells Few
[2020-05-20] MEDS ORDERED: DEXTROSE 50% 25 GM/50 ML VIAL IV ONE ×2 (23:06→23:43)
[2020-05-20] MEDS: DEXTROSE 50% 25 GM/50 ML VIAL IV PRN ×2 (23:10→23:43)
[2020-05-20] MEDS ORDERED: GLUCAGON 1 MG VIAL IM PRN (23:56)
[2020-05-21] MEDS: INSULIN LISPRO 100 UNIT/ML SUBCUT SCH ×4 (00:18→12:18)
[2020-05-21] MEDS: MIDAZOLAM 100 MG in SODIUM CHLORIDE 0.9% 80 ML IV PRN (00:36)
[2020-05-21] MEDS: NOREPINEPHRINE 8 MG in SODIUM CHLORIDE 0.9% 242 ML IV SCH ×3 (00:38→11:30)
[2020-05-21] MEDS: DEXTROSE 50% 25 GM/50 ML VIAL IV PRN ×4 (03:25→13:25)
[2020-05-21] MEDS: DOPamine 800 MG/250 ML PREMIX IV PRN ×2 (03:33→11:05)
[2020-05-21] MEDS: fentaNYL INJ 1,250 MCG in SODIUM CHLORIDE 0.9% 225 ML IV PRN (04:09)
[2020-05-21 05:02] LABS: Basophils # 0.1 10*3/uL (0.0-0.2); Basophils % 0.7 % (0.0-0.8); Eosinophils % 9.2 % (0.00-10.9); Hematocrit 31.9 VOL% (42.0-52.0); Hemoglobin 10.4 GM/DL (14.0-18.0); Immature Granulocytes % 1.4 %; Immature Granulocytes Absolute 0.16 #; Lymphocytes % 17.8 % (21.2-54.2); Mean Corpuscular HGB Conc 32.6 GM/DL (32-36); Mean Corpuscular Volume 93.3 FL (87-102); Mean Platelet Volume 13.1 FL (9.6-12.0); Monocytes % 7.2 % (1.7-12.7); NRBC # 0.59 10*3/uL; Neutrophils % 63.7 % (38.7-73.9); Red Blood Count 3.42 MC/CUMM (3.8-5.5); Red Cell Distribution Width 16.7 % (9.3-17.3)
[2020-05-21 05:03] LABS: Platelet Count 96 T/CUMM (130-400); White Blood Count 11.2 T/CUMM (4-12)
[2020-05-21 05:18] LABS: Calcium 7.2 MG/DL (8.5-10.1)
[2020-05-21 05:28] LABS: Band Neutrophils 18 % (0-10); Eosinophils 19 % (0-10); Lymphocytes 11 % (20-55); Myelocytes 2 %; Nucleated Red Blood Cells 12 (0-5); Platelet Estimate Decreased; Segmented Neutrophils 47 % (50-85); Total Cells Counted 100
[2020-05-21 05:29] LABS: Hypochromasia Slight; Macrocytosis Slight; Ovalocytes Slight; Polychromasia Slight
[2020-05-21] MEDS: OCTREOTIDE 500 MCG in SODIUM CHLORIDE 0.9% 100 ML IV SCH (06:22)
[2020-05-21] MEDS ORDERED: NOREPINEPHRINE 4 MG/4 ML VIAL IV ONE (08:06)
[2020-05-21] MEDS ORDERED: SODIUM BICARBONATE 50 MEQ/50 ML VIAL IV ONE ×3 (08:15→08:28)
[2020-05-21] MEDS ORDERED: DEXTROSE 50% 25 GM/50 ML VIAL IV ONE (08:15)
[2020-05-21] MEDS ORDERED: PHENYLEPHRINE DRIP 40 MG/250 ML PREMIX IV ONE (08:15)
[2020-05-21 08:16] LABS: ABG Base Excess -24.7 MMOL/L (-2.5-2.5); ABG HCO3 3.7 MMOL/L (20-26); ABG Oxygen Saturation 99.3 % (95-100); ABG PO2 227.1 MM HG (80-95); ABG TCO2 4.1 MMOL/L (23-27)
[2020-05-21] MEDS: PHENYLEPHRINE DRIP 40 MG/250 ML PREMIX IV PRN ×4 (08:18→14:36)
[2020-05-21 08:27] LABS: ABG PCO2 12.1 MM HG (35-48); ABG PH 7.054 (7.35-7.45)
[2020-05-21] MEDS ORDERED: MULTIVITAMIN LIQUID (CENTRUM) 60 ML BOTTLE PO SCH (09:00)
[2020-05-21] MEDS ORDERED: THIAMINE 200 MG/2 ML VIAL IV SCH (09:00)
[2020-05-21] MEDS ORDERED: SODIUM BICARB INJ 150 MEQ in DEXTROSE 5% 850 ML IV SCH (09:00)
[2020-05-21] MEDS ORDERED: FOLIC ACID INJ 1 MG in SYRINGE 1 EACH IV SCH (09:00)
[2020-05-21 09:15] LABS: Basophils # 0.1 10*3/uL (0.0-0.2); Basophils % 0.5 % (0.0-0.8); Eosinophils # 0.7 10*3/uL (0.0-0.87); Eosinophils % 5.2 % (0.00-10.9); Hematocrit 26.5 VOL% (42.0-52.0); Hemoglobin 8.6 GM/DL (14.0-18.0); Immature Granulocytes Absolute 0.25 #; Lymphocytes # 2.2 10*3/uL (1.4-4.0); Lymphocytes % 17.4 % (21.2-54.2); Mean Corpuscular HGB Conc 32.5 GM/DL (32-36); Monocytes % 8.2 % (1.7-12.7); NRBC # 0.92 10*3/uL; Neutrophils % 66.7 % (38.7-73.9); Red Blood Count 2.82 MC/CUMM (3.8-5.5); White Blood Count 12.4 T/CUMM (4-12)
[2020-05-21 09:16] LABS: Platelet Count 68 T/CUMM (130-400)
[2020-05-21] MEDS ORDERED: FOLIC ACID 1 MG TABLET PER TUBE SCH (09:30)
[2020-05-21] MEDS ORDERED: PIPERACILLIN/TAZOBACTAM 3,375 MG in SODIUM CHLORIDE 0.9% 100 ML IV SCH (09:30)
[2020-05-21] MEDS ORDERED: THIAMINE 100 MG TABLET PER TUBE SCH (09:30)
[2020-05-21] MEDS ORDERED: HYDROCORTISONE 100 MG VIAL IV SCH (09:30)
[2020-05-21 09:33] LABS: Bilirubin,Direct 3.61 MG/DL (0.0-0.20); Bilirubin,Indirect 1.3 MG/DL (0.0-1.0); Bilirubin,Total 4.9 MG/DL (0.2-1.0); Total Protein 3.7 G/DL (6.4-8.3)
[2020-05-21 09:34] LABS: Band Neutrophils 8 % (0-10); Eosinophils 9 % (0-10); Hypochromasia 1+; Lymphocytes 12 % (20-55); Myelocytes 3 %; Nucleated Red Blood Cells 15 (0-5); Platelet Estimate Decreased; Segmented Neutrophils 62 % (50-85); Total Cells Counted 100
[2020-05-21 09:35] LABS: Macrocytosis Slight
[2020-05-21] MEDS ORDERED: LACTULOSE 20 GM/30 ML UDCUP PO SCH (10:00)
[2020-05-21] MEDS ORDERED: DESITIN 4OZ/NYSTATIN 15 GRAM MIXTURE PASTE TOP SCH (10:00)
[2020-05-22] MEDS ORDERED: LIOTHYRONINE 25 MCG TABLET PO SCH (06:30)
== END 2020-05-21 15:02 | disposition expired | DRG 326 ==
LOC: N.ED 10:30 → N.EDINP 12:07 → N.CC 12:45
PROVIDERS: ADMIT Internal Medicine; ATTEND Internal Medicine